=== PATIENT | female | born 1955 | race Two or more races ===

== ENCOUNTER → 2021-01-14 | Outpatient (CLI) | payer OTHER | END | disposition home or self-care (01) | LOC: RT 08:47 | PROVIDERS: ATTEND Internal Medicine Pulmonary Disease | DX: J98.8 Other specified respiratory disorders (principal); D86.9 Sarcoidosis, unspecified; J98.4 Other disorders of lung | CPT/HCPCS: 94060; 94618; 94727; 94729 ==

== ENCOUNTER 2024-09-26 08:38 | Outpatient (CLI) | payer OTHER ==
[2024-09-26] MEDS ORDERED: ALBUTEROL SULF 2.5 MG/0.5ML(0.5%) NEB SOLN ONE (08:49)
== END 2024-09-26 17:00 | disposition home or self-care (01) ==
LOC: RT 08:38
PROVIDERS: ATTEND Internal Medicine Pulmonary Disease
DX: J44.9 Chronic obstructive pulmonary disease, unspecified (principal); R06.00 Dyspnea, unspecified; D86.9 Sarcoidosis, unspecified; R05.9 Cough, unspecified
CPT/HCPCS: 94060; 94618; 94727; 94729